=== PATIENT | male | born 1955 | race Native Hawaiian/Other Pacific Islander ===

== ENCOUNTER 2017-12-05 07:28 | Outpatient (CLI) | payer BC ==
[2017-12-05 08:29] LABS: POTASSIUM 3.9 mmol/L (3.6-5.2)
== END 2017-12-05 20:13 ==
LOC: LABW 07:28
PROVIDERS: Otolaryngology
DX: I10 Essential (primary) hypertension (principal); E11.9 Type 2 diabetes mellitus without complications
CPT/HCPCS: 36415; 80048; 93005

== ENCOUNTER 2019-01-21 10:01 | Outpatient (CLI) | payer BC | END 2019-01-21 19:51 | disposition home or self-care (01) | LOC: RAD 10:01 | DX: R06.2 Wheezing (principal); R05 Cough; J40 Bronchitis, not specified as acute or chronic ==

== ENCOUNTER 2021-05-18 12:58 | Outpatient (CLI) | payer OTHER | END 2021-05-18 20:54 | disposition home or self-care (01) | LOC: RAD 12:58 | PROVIDERS: ATTEND Nurse Practitioner Family | DX: M79.672 Pain in left foot (principal) ==

== ENCOUNTER 2021-06-26 09:46 | Outpatient (CLI) | payer OTHER | END 2021-06-26 18:56 | disposition home or self-care (01) | LOC: RAD 09:46 | PROVIDERS: ATTEND Nurse Practitioner Family | DX: S92.812A Other fracture of left foot, initial encounter for closed fracture (principal); Y92.9 Unspecified place or not applicable ==

== ENCOUNTER 2022-05-17 14:31 | Outpatient (CLI) | payer OTHER | END 2022-05-17 20:20 | disposition home or self-care (01) | LOC: MRI 14:31 | PROVIDERS: ATTEND Physical Medicine & Rehabilitation Pain Medicine | DX: M25.561 Pain in right knee (principal) ==